=== PATIENT | female | born 1940 | race Hispanic/Latino ===

== ENCOUNTER → 2017-06-11 | Outpatient (CLI) | payer MEDICARE, OTHER ==
[~2017-06-11] MED LIST: ABAT50SY SQ; CALC-1038 PO; LEVO88TA7 PO; PANT20TA12 PO; VALS80TA29 PO
== END | disposition home or self-care (01) ==
LOC: RAH 10:24
PROVIDERS: ATTEND Family Medicine
DX: Z12.31 Encounter for screening mammogram for malignant neoplasm of breast (principal)
CPT/HCPCS: 77067

== ENCOUNTER → 2018-03-03 | Outpatient (CLI) | payer OTHER ==
[~2018-03-03] MED LIST changes: -VALS80TA29 PO; +VALS80TA30 PO
== END | disposition home or self-care (01) ==
LOC: RAH 07:15
PROVIDERS: ATTEND Family Medicine
DX: R10.32 Left lower quadrant pain (principal); R10.31 Right lower quadrant pain
CPT/HCPCS: 74176

== ENCOUNTER 2019-03-29 12:00 | Emergency (ER) | payer OTHER ==
[2019-03-29] MEDS ORDERED: KETOROLAC TROMETHAMINE 30MG/ML ONE (13:05)
== END 2019-03-29 13:37 | disposition home or self-care (01) ==
LOC: EDH 12:00
DX: S40.011A Contusion of right shoulder, initial encounter (principal); I10 Essential (primary) hypertension; E07.9 Disorder of thyroid, unspecified; Z88.8 Allergy status to other drugs, medicaments and biological substances; W22.8XXA Striking against or struck by other objects, initial encounter; Y93.89 Activity, other specified; Y92.098 Other place in other non-institutional residence as the place of occurrence of the external cause; Y99.8 Other external cause status
CPT/HCPCS: 73030; 73060; 96372; 99284; J1885

== ENCOUNTER → 2019-07-27 | Outpatient (CLI) | payer OTHER | END | disposition home or self-care (01) | LOC: OIH 13:11 | PROVIDERS: ATTEND Internal Medicine | DX: M16.0 Bilateral primary osteoarthritis of hip (principal); M19.011 Primary osteoarthritis, right shoulder; M19.012 Primary osteoarthritis, left shoulder; I70.90 Unspecified atherosclerosis; I87.8 Other specified disorders of veins; M47.816 Spondylosis without myelopathy or radiculopathy, lumbar region | CPT/HCPCS: 73030; 73521 ==

== ENCOUNTER → 2019-08-14 | Outpatient (CLI) | payer OTHER | END | disposition home or self-care (01) | LOC: OIH 14:29 | PROVIDERS: ATTEND Internal Medicine | DX: M47.816 Spondylosis without myelopathy or radiculopathy, lumbar region (principal); M48.061 Spinal stenosis, lumbar region without neurogenic claudication; M25.78 Osteophyte, vertebrae; M15.0 Primary generalized (osteo)arthritis | CPT/HCPCS: 72100 ==

== ENCOUNTER 2021-02-15 15:55 | Emergency (ER) | payer OTHER ==
[~2021-02-15] VITALS: Ht 157.5 cm; Wt 80.3 kg
[~2021-02-15 15:55] MED LIST changes: -PANT20TA12 PO; +PANT20TA18 PO
[2021-02-15 15:57] VITALS: BP 139/72
[2021-02-15] MEDS ORDERED: HYDROCODONE/ACETAMINOPHEN 5/325 MG TAB PO ONE (16:30)
[2021-02-15] MEDS ORDERED: LIDOP TD (17:39)
[2021-02-15] MEDS ORDERED: LIDOCAINE 5% TOPICAL PATCH TP ONE ×2 (17:44→18:00)
== END 2021-02-15 19:37 | disposition home or self-care (01) ==
LOC: EDH 15:55
DX: M48.56XA Collapsed vertebra, not elsewhere classified, lumbar region, initial encounter for fracture (principal); M54.16 Radiculopathy, lumbar region; I10 Essential (primary) hypertension; M19.90 Unspecified osteoarthritis, unspecified site; Z79.899 Other long term (current) drug therapy; Z88.8 Allergy status to other drugs, medicaments and biological substances
CPT/HCPCS: 72131

== ENCOUNTER 2021-04-21 09:10 | Observation (INO) | payer OTHER ==
[2021-04-18 13:41] LABS: BASOPHILS % (AUTO) 0.6 % (0.0-5.0); EOSINOPHILS % (AUTO) 3.7 % (0.0-8.0); HEMATOCRIT 40.8 % (36-48); LYMPHOCYTES % (AUTO) 18.4 % (21.0-51.0); MEAN CORPUSCULAR HEMOGLOBIN 30.5 pg (27.0-33.0); MEAN CORPUSCULAR HGB CONC 33.1 g/dL (32.0-36.0); MEAN CORPUSCULAR VOLUME 92.3 fL (79-99); MONOCYTES % (AUTO) 7.9 % (3.0-13.0); NEUTROPHILS % (AUTO) 68.8 % (40.0-77.0); PLATELET COUNT (AUTO) 260 K/uL (130-400); RED BLOOD CELL COUNT(AUTO) 4.42 MIL/uL (4.00-5.50); RED CELL DISTRIBUTION WIDTH 12.9 % (11.0-15.5); WHITE BLOOD COUNT (AUTO) 8.7 K/uL (4.8-10.8)
[2021-04-18 13:43] LABS: APPEARANCE,URINE Cloudy (CLEAR); BILIRUBIN,URINE Negative (NEGATIVE); COLOR,URINE Dark Yellow (YELLOW); GLUCOSE, URINE (UA) Negative (NEGATIVE); KETONES,URINE Negative (NEGATIVE); LEUKOCYTE ESTERASE ,URINE Large (NEGATIVE); NITRATE,URINE Positive (NEGATIVE); OCCULT BLOOD,URINE Negative (NEGATIVE); PH,URINE 6.5 (5.0-8.0); PROTEIN,URINE Negative (NEGATIVE)
[2021-04-18 13:49] VITALS: BP 178/73
[2021-04-18 13:53] LABS: CREATININE 0.7 mg/dL (0.5-1.5); POTASSIUM 3.8 mmol/L (3.5-5.1)
[2021-04-18 13:56] LABS: INR 1.03 (0.85-1.15); PROTHROMBIN TIME 11.2 SEC (9.6-11.6)
[2021-04-18 14:22] LABS: BACTERIA,URINE Moderate /HPF (None Seen); MUCUS,URINE Few LPF (None Seen); SQUAMOUS EPITHELIAL CELL,UR Few /HPF (0-2); WBC,URINE 26-50 /HPF (0-1)
[~2021-04-21] VITALS: Ht 154.9 cm; Wt 78.4 kg
[2021-04-21] VITALS (23 sets, daily range): BP systolic 104–171; BP diastolic 42–82
[~2021-04-21 09:10] MED LIST changes: -ABAT50SY SQ; -CALC-1038 PO; +DULO30CA52 PO; +FURO20TA4 PO; +LOSA50TA64 PO; -PANT20TA18 PO; -VALS80TA30 PO
[2021-04-21] MEDS ORDERED: GENTAMICIN SULFATE 240 MG in 0.9%NACL 100ML 100 ML IV SCH (10:00)
[2021-04-21] MEDS ORDERED: CEFAZOLIN SODIUM 1 GM VIAL ONE ×3 (10:10→15:01)
[2021-04-21] MEDS ORDERED: LACTATED RINGERS 1000ML 1,000 ML IV ONE (10:10)
[2021-04-21] MEDS: CEFAZOLIN SODIUM 1 GM VIAL IVP ONE ×2 (10:30→14:50)
[2021-04-21] MEDS ORDERED: FENTANYL CITRATE PF 50 MCG/1 ML 2ML VIAL ONE (13:06)
[2021-04-21] MEDS ORDERED: SUCCINYLCHOLINE CHLORIDE 20 MG/ML 10 ML VIAL ONE (13:06)
[2021-04-21] MEDS ORDERED: ROCURONIUM 10MG/1ML SYR 10 MG/ML ML ONE (13:06)
[2021-04-21] MEDS ORDERED: LIDOCAINE PF 100MG/5ML (2%) SYRINGE 5ML ONE (13:06)
[2021-04-21] MEDS ORDERED: PROPOFOL 10 MG/ML 20ML VIAL IV ONE ×2 (13:06→17:36)
[2021-04-21] MEDS ORDERED: ROPIVACAINE 0.5% 5MG/ML 30ML IJ ONE (13:08)
[2021-04-21] MEDS ORDERED: TRANEXAMIC ACID 1000MG/10ML ONE ×2 (13:34→18:09)
[2021-04-21] MEDS ORDERED: ARTIFICIAL TEARS 3.5 GM OINTMENT ONE (14:44)
[2021-04-21] MEDS ORDERED: GLYCOPYRROLATE 1 MG/5 ML SYRINGE ONE (15:44)
[2021-04-21] MEDS ORDERED: PHENYLEPHRINE HCL 10 MG/ML 1ML VIAL IV ONE (16:04)
[2021-04-21] MEDS ORDERED: EPHEDRINE SULFATE 50 MG/ML AMPULE ONE (17:12)
[2021-04-21] MEDS ORDERED: NEOSTIGMINE 5MG/5ML SYR IV ONE (17:19)
[2021-04-21] MEDS ORDERED: DEXAMETHASONE SOD PHOSPHATE 10MG/ML 1ML VIAL ONE (17:52)
[2021-04-21] MEDS ORDERED: ONDANSETRON 4MG INJ ONE (17:53)
[2021-04-21] MEDS ORDERED: KCL 20 MEQ ERTAB PO PRN (18:00)
[2021-04-21] MEDS: ACETAMINOPHEN 500 MG TABLET PO SCH (18:00)
[2021-04-21] MEDS ORDERED: DiphenhydrAMINE HCL 50 MG/ML VIAL IVP PRN (18:00)
[2021-04-21] MEDS ORDERED: CALCIUM CARB 500MG PO PRN (18:00)
[2021-04-21] MEDS ORDERED: KETOROLAC 15MG/ML VIAL (15MG/ML) IV PRN (18:00)
[2021-04-21] MEDS ORDERED: TEMAZEPAM 15 MG CAPSULE PO PRN (18:00)
[2021-04-21] MEDS ORDERED: OXYCODONE HCL 5 MG TAB PO PRN ×2 (18:00)
[2021-04-21] MEDS ORDERED: LIDOCAINE HCL-MPF 1% 2ML VIAL IV PRN (18:00)
[2021-04-21] MEDS ORDERED: POTASSIUM CHLORIDE 10% ELIXIR 20 MEQ/15 ML UDCUP PO PRN (18:00)
[2021-04-21] MEDS ORDERED: TRAMADOL HCL 50 MG TABLET PO PRN (18:00)
[2021-04-21] MEDS ORDERED: FE FUMARATE/FA/MV, MIN COMB#15 1 TAB PO PRN (18:00)
[2021-04-21] MEDS ORDERED: POTASSIUM CHLORIDE 20MEQ/100ML 100 ML IV PRN (18:00)
[2021-04-21] MEDS ORDERED: ONDANSETRON 4MG INJ IVP PRN (18:00)
[2021-04-21] MEDS: FAMOTIDINE 20MG TAB PO SCH (22:07)
[2021-04-21] MEDS: CELECOXIB 200 MG CAP PO SCH (22:07)
[2021-04-21] MEDS: 0.9%NACL 1000ML 1,000 ML IV SCH (22:09)
[2021-04-21] MEDS: CEFAZOLIN SODIUM 1 GM VIAL IVP SCH (23:12)
[2021-04-22] MEDS: ACETAMINOPHEN 500 MG TABLET PO SCH ×3 (03:11→18:04)
[2021-04-22 03:58] VITALS: BP 129/64
[2021-04-22 04:04] LABS: HEMATOCRIT 30.6 % (36-48); MEAN CORPUSCULAR HEMOGLOBIN 30.1 pg (27.0-33.0); MEAN CORPUSCULAR HGB CONC 33.7 g/dL (32.0-36.0); MEAN CORPUSCULAR VOLUME 89.5 fL (79-99); RED BLOOD CELL COUNT(AUTO) 3.42 MIL/uL (4.00-5.50); RED CELL DISTRIBUTION WIDTH 12.7 % (11.0-15.5); WHITE BLOOD COUNT (AUTO) 8.9 K/uL (4.8-10.8)
[2021-04-22 04:12] LABS: CREATININE 0.6 mg/dL (0.5-1.5); POTASSIUM 3.5 mmol/L (3.5-5.1)
[2021-04-22] MEDS: CEFAZOLIN SODIUM 1 GM VIAL IVP SCH (06:02)
[2021-04-22] MEDS ORDERED: LEVOTHYROXINE 88 MCG TABLET PO SCH (06:30)
[2021-04-22 07:30] VITALS: BP 152/67
[2021-04-22] MEDS ORDERED: LEVOFLOXACIN 500 MG TABLET PO SCH (09:00)
[2021-04-22] MEDS ORDERED: DULOXETINE HCL 30 MG CAP PO SCH (09:00)
[2021-04-22] MEDS ORDERED: POLYETHYLENE GLYCOL 3350 17 GM POWD.PACK PO SCH (09:00)
[2021-04-22] MEDS ORDERED: LOSARTAN 50 MG TABLET PO SCH (09:00)
[2021-04-22] MEDS ORDERED: ENOXAPARIN SODIUM 30 MG/0.3 ML SQ SCH (09:00)
[2021-04-22] MEDS: CELECOXIB 200 MG CAP PO SCH (09:42)
[2021-04-22] MEDS: FAMOTIDINE 20MG TAB PO SCH (09:43)
[2021-04-22] MEDS: 0.9%NACL 1000ML 1,000 ML IV SCH (09:46)
[2021-04-22 11:00] VITALS: BP 130/72
[2021-04-22] MEDS ORDERED: FUROSEMIDE 20 MG TABLET PO SCH (12:00)
[2021-04-22 15:30] VITALS: BP 142/61
[2021-04-22] MEDS ORDERED: LEVO500T90 PO (18:00)
[2021-04-22] MEDS ORDERED: HYDR-4060 PO (18:00)
[2021-04-24] MEDS ORDERED: BISACODYL 10 MG SUPP.RECT RC PRN (18:00)
== END 2021-04-22 19:55 | disposition home or self-care (01) ==
LOC: DAH 09:10 → 4AH 09:11
PROVIDERS: ADMIT Orthopaedic Surgery; ATTEND Orthopaedic Surgery
DX: M12.812 Other specific arthropathies, not elsewhere classified, left shoulder (principal); Z20.822 Contact with and (suspected) exposure to COVID-19; I10 Essential (primary) hypertension; D64.9 Anemia, unspecified; Z79.899 Other long term (current) drug therapy; Z98.890 Other specified postprocedural states
CPT/HCPCS: 23472; 36415 ×2; 73030; 80048 ×2; 81001; 85025; 85027; 85610; 87077; 87088; 87186; 87635; 87641; 93005; 96365; 96372; 96375; 96376; 97039 ×2; 97116; 97161; 97530 ×2; A4215; A4221; A4222; A4223 ×2; A4344; A4565; A4600; A4649 ×3; A4663; A4930 ×3; A5113; A5120; A6207; C1776; C9803; G0168; G0378 ×25; J0330; J0690 ×5; J1100; J1580; J1650; J2001; J2370; J2405; J2704 ×2; J2710; J2795; J3010; J3490 ×4; J7120 ×2

== ENCOUNTER 2022-03-02 06:20 | Observation (INO) | payer OTHER ==
[2022-02-27 09:54] LABS: HEMATOCRIT 36.5 % (36-48); LYMPHOCYTES % (AUTO) 22.3 % (21.0-51.0); MEAN CORPUSCULAR HGB CONC 34.2 g/dL (32.0-36.0); MEAN CORPUSCULAR VOLUME 87.5 fL (79-99); MONOCYTES % (AUTO) 8.1 % (3.0-13.0); NEUTROPHILS % (AUTO) 58.2 % (40.0-77.0); PLATELET COUNT (AUTO) 272 K/uL (130-400); RED BLOOD CELL COUNT(AUTO) 4.17 MIL/uL (4.00-5.50); RED CELL DISTRIBUTION WIDTH 12.5 % (11.0-15.5)
[2022-02-27 10:13] LABS: INR 0.99 (0.85-1.15); PROTHROMBIN TIME 10.8 SEC (9.6-11.6)
[2022-02-27 10:14] LABS: PARTIAL THROMBOPLASTIN TIME 29.7 SEC (26.3-35.5)
[2022-02-27 10:17] LABS: ALBUMIN 3.6 g/dL (3.5-5.0); CARBON DIOXIDE 28 mmol/L (21-32); CHLORIDE 95 mmol/L (101-111); CREATININE 0.6 mg/dL (0.5-1.5); GLOMERULAR FILTR. RATE CALC 102 mL/min (>60); GLUCOSE,RANDOM 100 mg/dL (70-105); SODIUM SERUM 129 mmol/L (136-145); UREA NITROGEN, BLOOD 10 mg/dL (7-18)
[2022-02-27 10:21] LABS: CRP QUANTITATIVE < 2.00 mg/L (0.00-9.0)
[2022-02-27 11:30] VITALS: BP 174/78
[2022-03-02] VITALS (24 sets, daily range): BP systolic 106–159; BP diastolic 50–97
[~2022-03-02] VITALS: Ht 157.5 cm; Wt 72.2 kg
[~2022-03-02 06:20] MED LIST changes: -FURO20TA4 PO; +NAPR-1023 PO; +PRAMIPEXOLE PO
[2022-03-02] MEDS ORDERED: LACTATED RINGERS 1000ML 1,000 ML IV ONE (06:50)
[2022-03-02 07:01] LABS: APPEARANCE,URINE SL CLOUDY (CLEAR); BILIRUBIN,URINE NEGATIVE (NEGATIVE); COLOR,URINE YELLOW (YELLOW); GLUCOSE, URINE (UA) NEGATIVE (NEGATIVE); KETONES,URINE NEGATIVE (NEGATIVE); LEUKOCYTE ESTERASE ,URINE SMALL Leu/uL (NEGATIVE); NITRATE,URINE POSITIVE (NEGATIVE); OCCULT BLOOD,URINE NEGATIVE (NEGATIVE); PROTEIN,URINE NEGATIVE (NEGATIVE); UROBILINOGEN,URINE 0.2 mg/dL (0.2-1.0)
[2022-03-02] MEDS: CEFAZOLIN SODIUM 1 GM VIAL ONE ×2 (07:10→09:25)
[2022-03-02 07:24] LABS: BACTERIA,URINE Many /HPF (None Seen); RBC,URINE 0-1 /HPF (0-1); SQUAMOUS EPITHELIAL CELL,UR Rare /HPF (0-2)
[2022-03-02] MEDS ORDERED: ROCURONIUM 10MG/1ML SYR 10 MG/ML ML ONE (08:58)
[2022-03-02] MEDS ORDERED: NEOSTIGMINE 5MG/5ML SYR IV ONE (08:58)
[2022-03-02] MEDS ORDERED: GLYCOPYRROLATE 1 MG/5 ML SYRINGE ONE (08:58)
[2022-03-02] MEDS ORDERED: ROPIVACAINE 0.5% 5MG/ML 30ML IJ ONE ×2 (08:58→09:00)
[2022-03-02] MEDS ORDERED: ONDANSETRON 4MG INJ ONE (08:58)
[2022-03-02] MEDS ORDERED: FENTANYL CITRATE PF 50 MCG/1 ML 2ML VIAL ONE (08:59)
[2022-03-02] MEDS ORDERED: PROPOFOL 10 MG/ML 20ML VIAL IV ONE (09:00)
[2022-03-02] MEDS ORDERED: PHENYLEPHRINE HCL 10 MG/ML 1ML VIAL IV ONE (10:13)
[2022-03-02] MEDS ORDERED: TRANEXAMIC ACID 1000MG/10ML ONE (10:50)
[2022-03-02] MEDS ORDERED: POTASSIUM CHLORIDE 20MEQ/100ML 100 ML IV PRN (11:30)
[2022-03-02] MEDS ORDERED: ONDANSETRON 4MG INJ IVP PRN (11:30)
[2022-03-02] MEDS ORDERED: FE FUMARATE/FA/MV, MIN COMB#15 1 TAB PO PRN (11:30)
[2022-03-02] MEDS: KETOROLAC 15MG/ML VIAL (15MG/ML) IV SCH ×3 (11:30→23:33)
[2022-03-02] MEDS ORDERED: CALCIUM CARB 500MG PO PRN (11:30)
[2022-03-02] MEDS ORDERED: POTASSIUM CHLORIDE 10% ELIXIR 20 MEQ/15 ML UDCUP PO PRN (11:30)
[2022-03-02] MEDS ORDERED: LIDOCAINE HCL-MPF 1% 2ML VIAL IV PRN (11:30)
[2022-03-02] MEDS ORDERED: TRAMADOL HCL 50 MG TABLET PO PRN (11:30)
[2022-03-02] MEDS ORDERED: NAPROXEN 500 MG TABLET PO PRN (13:30)
[2022-03-02] MEDS: CEFAZOLIN SODIUM 1 GM VIAL IVP SCH ×2 (16:50→23:33)
[2022-03-02] MEDS: 0.9%NACL 1000ML 1,000 ML IV SCH ×2 (18:10→21:59)
[2022-03-02] MEDS: PRAMIPEXOLE DI-HCL 0.25 MG TABLET PO SCH (19:54)
[2022-03-02] MEDS: DULOXETINE HCL 30 MG CAP PO SCH (19:55)
[2022-03-02] MEDS: ACETAMINOPHEN WITH CODEINE 1 TAB TAB PO PRN (21:11)
[2022-03-03] VITALS (7 sets, daily range): BP systolic 93–131; BP diastolic 41–70
[2022-03-03] MEDS ORDERED: LEVOTHYROXINE 88 MCG TABLET ONE (04:23)
[2022-03-03 04:55] LABS: HEMATOCRIT 31.4 % (36-48); MEAN CORPUSCULAR HEMOGLOBIN 29.7 pg (27.0-33.0); MEAN CORPUSCULAR HGB CONC 33.8 g/dL (32.0-36.0); RED BLOOD CELL COUNT(AUTO) 3.57 MIL/uL (4.00-5.50); RED CELL DISTRIBUTION WIDTH 12.6 % (11.0-15.5); WHITE BLOOD COUNT (AUTO) 10.1 K/uL (4.8-10.8)
[2022-03-03 05:08] LABS: CREATININE 0.7 mg/dL (0.5-1.5); POTASSIUM 3.7 mmol/L (3.5-5.1)
[2022-03-03] MEDS: LEVOTHYROXINE 88 MCG TABLET PO SCH (06:06)
[2022-03-03] MEDS: KCL 20 MEQ ERTAB PO PRN ×2 (06:07→21:03)
[2022-03-03] MEDS: KETOROLAC 15MG/ML VIAL (15MG/ML) IV SCH ×4 (06:07→21:03)
[2022-03-03] MEDS: ACETAMINOPHEN WITH CODEINE 1 TAB TAB PO PRN ×2 (06:16→21:03)
[2022-03-03] MEDS: POLYETHYLENE GLYCOL 3350 17 GM POWD.PACK PO SCH (08:27)
[2022-03-03] MEDS: DULOXETINE HCL 30 MG CAP PO SCH ×2 (08:27→21:04)
[2022-03-03] MEDS: PRAMIPEXOLE DI-HCL 0.25 MG TABLET PO SCH ×2 (08:27→21:04)
[2022-03-03] MEDS ORDERED: LOSARTAN 50 MG TABLET PO SCH (09:00)
[2022-03-04] VITALS: BP 110/48
[2022-03-04 04:00] VITALS: BP 101/51
[2022-03-04] MEDS: KETOROLAC 15MG/ML VIAL (15MG/ML) IV SCH (05:33)
[2022-03-04] MEDS: LEVOTHYROXINE 88 MCG TABLET PO SCH (05:33)
[2022-03-04] MEDS: DULOXETINE HCL 30 MG CAP PO SCH (08:46)
[2022-03-04] MEDS: POLYETHYLENE GLYCOL 3350 17 GM POWD.PACK PO SCH (08:46)
[2022-03-04] MEDS: PRAMIPEXOLE DI-HCL 0.25 MG TABLET PO SCH (08:46)
[2022-03-04 09:03] VITALS: BP 99/53
[2022-03-04] MEDS ORDERED: MACR100 PO (10:49)
[2022-03-04] MEDS ORDERED: ACET-2079 PO (10:49)
[2022-03-05] MEDS ORDERED: BISACODYL 10 MG SUPP.RECT RC PRN (11:30)
== END 2022-03-04 12:30 | disposition home health service (06) ==
LOC: DAH 06:20 → DAHIP 06:21 → 4DH 12:30
PROVIDERS: ADMIT Student in an Organized Health Care Education/Training Program; ATTEND Student in an Organized Health Care Education/Training Program
DX: M75.101 Unspecified rotator cuff tear or rupture of right shoulder, not specified as traumatic (principal); Z20.822 Contact with and (suspected) exposure to COVID-19; M12.811 Other specific arthropathies, not elsewhere classified, right shoulder; M25.511 Pain in right shoulder; G89.29 Other chronic pain; D64.9 Anemia, unspecified; Z79.899 Other long term (current) drug therapy; Z98.890 Other specified postprocedural states
CPT/HCPCS: 82040; 80048 ×2; 85025; 85610; 85730; 84134; 86140; 87426; 87641; 23472; 96374; 96376 ×3; 96375; 64415; 87077; 87088; 87186; 82948; 81001; 36415 ×2; 73030; 97161; 85027; 97039; 97116 ×2; 97530 ×3; G0378 ×48; A4663; J7030 ×2; A4565; C1776; J7120; J3010; J0690 ×3; J3490 ×2; J2710; J2704; J2405; J2795 ×2; J1885 ×6; J2370; A6446; G0168; A6254; A5120; A4215; A4223; A4222; A4221; A4335; A4600

== ENCOUNTER 2022-07-24 05:53 | Day surgery (SDC) | payer OTHER ==
[2022-07-22 10:47] LABS: ALBUMIN 3.7 g/dL (3.5-5.0); CARBON DIOXIDE 32 mmol/L (21-32); CHLORIDE 95 mmol/L (101-111); CREATININE 0.7 mg/dL (0.5-1.5); GLOMERULAR FILTR. RATE CALC 85 mL/min (>60); GLUCOSE,RANDOM 109 mg/dL (70-105); POTASSIUM 4.3 mmol/L (3.5-5.1); SODIUM SERUM 131 mmol/L (136-145); UREA NITROGEN, BLOOD 8 mg/dL (7-18)
[2022-07-22 10:48] LABS: CRP QUANTITATIVE < 2.00 mg/L (0.00-9.0)
[2022-07-23 09:43] VITALS: BP 183/73
[~2022-07-24] VITALS: Ht 157.5 cm; Wt 73.7 kg
[2022-07-24] VITALS (18 sets, daily range): BP systolic 131–156; BP diastolic 56–92
[~2022-07-24 05:53] MED LIST changes: +BUPIVACAINE/PF 0.5% 30ML VIAL ONE; +LEVO88CA4 PO; -LEVO88TA7 PO; -NAPR-1023 PO; +PRAM0.5T12 PO; -PRAMIPEXOLE PO
[2022-07-24] MEDS ORDERED: LACTATED RINGERS 1000ML 1,000 ML IV ONE (06:14)
[2022-07-24] MEDS ORDERED: CEFAZOLIN SODIUM 2 GM VIAL ONE (06:14)
[2022-07-24] MEDS ORDERED: PROPOFOL 10 MG/ML 20ML VIAL IV ONE (07:14)
[2022-07-24] MEDS ORDERED: ROCURONIUM 10MG/1ML SYR 10 MG/ML ML ONE (07:14)
[2022-07-24] MEDS ORDERED: LIDOCAINE PF 100MG/5ML (2%) SYRINGE 5ML ONE (07:14)
[2022-07-24] MEDS ORDERED: FENTANYL CITRATE PF 50 MCG/1 ML 2ML VIAL ONE (07:15)
[2022-07-24] MEDS ORDERED: DEXAMETHASONE SOD PHOSPHATE 4 MG/ML 1ML VIAL ONE (07:38)
[2022-07-24] MEDS ORDERED: ONDANSETRON 4MG INJ ONE (07:38)
[2022-07-24] MEDS ORDERED: NEOSTIGMINE 5MG/5ML SYR IV ONE (07:49)
[2022-07-24] MEDS ORDERED: GLYCOPYRROLATE 1 MG/5 ML SYRINGE ONE (07:49)
[2022-07-24] MEDS ORDERED: CEFAZOLIN SODIUM 2 GM VIAL IVPB PRN (08:00)
[2022-07-24] MEDS ORDERED: ACET-2079 PO (08:27)
== END 2022-07-24 09:40 | disposition home or self-care (01) ==
LOC: DAH 05:53
PROVIDERS: ATTEND Student in an Organized Health Care Education/Training Program
DX: G56.03 Carpal tunnel syndrome, bilateral upper limbs (principal); Z20.822 Contact with and (suspected) exposure to COVID-19; I10 Essential (primary) hypertension; M06.9 Rheumatoid arthritis, unspecified; F41.9 Anxiety disorder, unspecified; E03.9 Hypothyroidism, unspecified; K21.9 Gastro-esophageal reflux disease without esophagitis; J45.909 Unspecified asthma, uncomplicated; E78.00 Pure hypercholesterolemia, unspecified; I73.9 Peripheral vascular disease, unspecified; Z98.41 Cataract extraction status, right eye; Z90.710 Acquired absence of both cervix and uterus; Z98.890 Other specified postprocedural states; Z98.49 Cataract extraction status, unspecified eye; Z79.899 Other long term (current) drug therapy
CPT/HCPCS: 82040; 80048; 84134; 86140; 87426; 36415; 64721; J1100; A4663; J7120; J3010; J3490 ×2; J2710; J2001; J2704; J2405; J0690; A6223; A4649; A4215 ×2; A4223; A4222; A4221; A4335 ×4

== ENCOUNTER → 2023-01-01 | Outpatient (CLI) | payer OTHER ==
[~2023-01-01] VITALS: Ht 157.5 cm; Wt 76.7 kg
[~2023-01-01] MED LIST changes: +ACET-2079 PO; -BUPIVACAINE/PF 0.5% 30ML VIAL ONE
[2023-01-01 12:52] VITALS: BP 146/72; PULSE 61; RESP 16
[2023-01-01 12:53] LABS: BASOPHILS % (AUTO) 1.7 % (0.0-5.0); EOSINOPHILS % (AUTO) 5.3 % (0.0-8.0); HEMATOCRIT 38.1 % (36-48); MEAN CORPUSCULAR HEMOGLOBIN 29.2 pg (27.0-33.0); MEAN CORPUSCULAR HGB CONC 33.3 g/dL (32.0-36.0); MEAN CORPUSCULAR VOLUME 87.6 fL (79-99); MONOCYTES % (AUTO) 9.5 % (3.0-13.0); NEUTROPHILS % (AUTO) 61.2 % (40.0-77.0); PLATELET COUNT (AUTO) 259 K/uL (130-400); RED BLOOD CELL COUNT(AUTO) 4.35 MIL/uL (4.00-5.50); RED CELL DISTRIBUTION WIDTH 12.9 % (11.0-15.5); WHITE BLOOD COUNT (AUTO) 5.9 K/uL (4.8-10.8)
[2023-01-01 12:54] LABS: APPEARANCE,URINE CLOUDY (CLEAR); BILIRUBIN,URINE NEGATIVE (NEGATIVE); COLOR,URINE YELLOW (YELLOW); GLUCOSE, URINE (UA) NEGATIVE (NEGATIVE); KETONES,URINE NEGATIVE (NEGATIVE); LEUKOCYTE ESTERASE ,URINE 500 Leu/uL (NEGATIVE); NITRATE,URINE NEGATIVE (NEGATIVE); OCCULT BLOOD,URINE NEGATIVE (NEGATIVE); PROTEIN,URINE NEGATIVE (NEGATIVE); UROBILINOGEN,URINE 0.2 mg/dL (0.2-1.0)
[2023-01-01 12:57] LABS: BACTERIA,URINE FEW /HPF (None Seen); SQUAMOUS EPITHELIAL CELL,UR RARE /HPF (0-2); WBC,URINE 51-100 /HPF (0-1)
[2023-01-01 13:03] LABS: CREATININE 0.6 mg/dL (0.5-1.5)
== END | disposition home or self-care (01) ==
LOC: DAH 10:00 → EDSTATUS 11:30
PROVIDERS: ATTEND Urology
DX: Z01.818 Encounter for other preprocedural examination (principal); Z20.822 Contact with and (suspected) exposure to COVID-19; N39.41 Urge incontinence
CPT/HCPCS: 93005; 87426; 80048; 85025; 87077; 87088; 87186; 81001; 36415; A6260

== ENCOUNTER 2023-01-14 06:37 | Day surgery (SDC) | payer OTHER ==
[2023-01-12 10:47] LABS: BASOPHILS # (AUTO) 0.06 K/uL (0.00-0.20); EOSINOPHILS # (AUTO) 0.36 K/uL (0.00-0.70); EOSINOPHILS % (AUTO) 6.1 % (0.0-8.0); HEMATOCRIT 36.6 % (36-48); IMMATURE GRANULOCYTE ABSOLUTE 0.02 K/uL (0-1); LYMPHOCYTES # (AUTO) 1.3 K/uL (1.0-4.8); LYMPHOCYTES % (AUTO) 22.8 % (21.0-51.0); MEAN CORPUSCULAR HEMOGLOBIN 28.9 pg (27.0-33.0); MEAN CORPUSCULAR HGB CONC 33.6 g/dL (32.0-36.0); MEAN CORPUSCULAR VOLUME 86.1 fL (79-99); MONOCYTES # (AUTO) 0.6 K/uL (0.1-1.0); MONOCYTES % (AUTO) 10.7 % (3.0-13.0); NEUTROPHILS # (AUTO) 3.5 K/uL (1.8-7.7); NEUTROPHILS % (AUTO) 59.1 % (40.0-77.0); PLATELET COUNT (AUTO) 252 K/uL (130-400); RED BLOOD CELL COUNT(AUTO) 4.25 MIL/uL (4.00-5.50); RED CELL DISTRIBUTION WIDTH 12.9 % (11.0-15.5); WHITE BLOOD COUNT (AUTO) 5.9 K/uL (4.8-10.8)
[2023-01-12 10:49] LABS: ADD UA MICROSCOPIC YES; APPEARANCE,URINE HAZY (CLEAR); BILIRUBIN,URINE NEGATIVE (NEGATIVE); COLOR,URINE YELLOW (YELLOW); GLUCOSE, URINE (UA) NEGATIVE (NEGATIVE); KETONES,URINE NEGATIVE (NEGATIVE); LEUKOCYTE ESTERASE ,URINE 500 Leu/uL (NEGATIVE); NITRATE,URINE NEGATIVE (NEGATIVE); OCCULT BLOOD,URINE NEGATIVE (NEGATIVE); PROTEIN,URINE NEGATIVE (NEGATIVE); UROBILINOGEN,URINE 0.2 mg/dL (0.2-1.0)
[2023-01-12 10:51] VITALS: BP 158/80; PULSE 68; RESP 16
[2023-01-12 10:52] LABS: BACTERIA,URINE MOD /HPF (None Seen); MUCUS,URINE RARE LPF (None Seen); RBC,URINE 0-1 /HPF (0-1); SQUAMOUS EPITHELIAL CELL,UR RARE /HPF (0-2); WBC,URINE 51-100 /HPF (0-1)
[2023-01-12 10:55] LABS: CREATININE 0.6 mg/dL (0.5-1.5); POTASSIUM 4.2 mmol/L (3.5-5.1)
[2023-01-14] VITALS (17 sets, daily range): BP systolic 125–161; BP diastolic 60–81; PULSE 57–89; RESP 12–17
[~2023-01-14] VITALS: Ht 157.5 cm; Wt 78.4 kg
[~2023-01-14 06:37] MED LIST changes: -ACET-2079 PO
[2023-01-14] MEDS ORDERED: LACTATED RINGERS 1000ML 1,000 ML IV ONE (07:09)
[2023-01-14] MEDS ORDERED: CEFTRIAXONE 1G VIAL ONE (07:09)
[2023-01-14] MEDS ORDERED: DEXAMETHASONE SOD PHOSPHATE 10MG/ML 1ML VIAL ONE (08:33)
[2023-01-14] MEDS ORDERED: LIDOCAINE PF 100MG/5ML (2%) SYRINGE 5ML ONE (08:33)
[2023-01-14] MEDS ORDERED: ONDANSETRON 4MG INJ ONE (08:33)
[2023-01-14] MEDS ORDERED: FENTANYL CITRATE PF 50 MCG/1 ML 2ML VIAL ONE (08:34)
[2023-01-14] MEDS ORDERED: PROPOFOL 10 MG/ML 20ML VIAL IV ONE (08:34)
[2023-01-14] MEDS ORDERED: CEFTRIAXONE 1G VIAL IVPB ONE (08:40)
[2023-01-14] MEDS ORDERED: BOTULINUM TOXIN TYPE A 100 UNITS/VIAL INJ ONE (09:00)
== END 2023-01-14 10:45 | disposition home or self-care (01) ==
LOC: DAH 06:37
PROVIDERS: ATTEND Urology
DX: N39.46 Mixed incontinence (principal); Z20.822 Contact with and (suspected) exposure to COVID-19; N32.3 Diverticulum of bladder; N32.81 Overactive bladder; R35.1 Nocturia; I10 Essential (primary) hypertension; K21.9 Gastro-esophageal reflux disease without esophagitis; E66.01 Morbid (severe) obesity due to excess calories; J45.909 Unspecified asthma, uncomplicated; M19.90 Unspecified osteoarthritis, unspecified site; Z79.01 Long term (current) use of anticoagulants; Z79.899 Other long term (current) drug therapy; Z98.890 Other specified postprocedural states
CPT/HCPCS: 80048; 85025; 87088; 87426; 81001; 36415; 71045; 93005; 52287; 87077; 87186; A6260; A4663; J7120 ×2; J3010; J1100; J2001; J0696 ×2; J2704; J2405; J0585; A4358; A4215 ×3; A4223; A4222; A4221; A4600; J3490

== ENCOUNTER 2023-07-29 06:51 | Day surgery (SDC) | payer OTHER ==
[2023-07-23 11:32] LABS: BASOPHILS # (AUTO) 0.07 K/uL (0.00-0.20); EOSINOPHILS # (AUTO) 0.32 K/uL (0.00-0.70); EOSINOPHILS % (AUTO) 4.6 % (0.0-8.0); HEMATOCRIT 38.1 % (36-48); IMMATURE GRANULOCYTE ABSOLUTE 0.03 K/uL (0-1); LYMPHOCYTES # (AUTO) 1.4 K/uL (1.0-4.8); LYMPHOCYTES % (AUTO) 20.8 % (21.0-51.0); MEAN CORPUSCULAR HGB CONC 33.6 g/dL (32.0-36.0); MEAN CORPUSCULAR VOLUME 86.4 fL (79-99); MONOCYTES # (AUTO) 0.6 K/uL (0.1-1.0); MONOCYTES % (AUTO) 8.4 % (3.0-13.0); NEUTROPHILS # (AUTO) 4.5 K/uL (1.8-7.7); NEUTROPHILS % (AUTO) 64.8 % (40.0-77.0); PLATELET COUNT (AUTO) 263 K/uL (130-400); RED BLOOD CELL COUNT(AUTO) 4.41 MIL/uL (4.00-5.50); WHITE BLOOD COUNT (AUTO) 6.9 K/uL (4.8-10.8)
[2023-07-23 11:34] VITALS: BP 170/64; PULSE 73; RESP 18
[2023-07-23 11:39] LABS: CREATININE 0.6 mg/dL (0.5-1.5); POTASSIUM 4.3 mmol/L (3.5-5.1)
[2023-07-23 11:53] LABS: APPEARANCE,URINE CLEAR (CLEAR); BILIRUBIN,URINE NEGATIVE (NEGATIVE); COLOR,URINE YELLOW (YELLOW); GLUCOSE, URINE (UA) NEGATIVE (NEGATIVE); KETONES,URINE NEGATIVE (NEGATIVE); LEUKOCYTE ESTERASE ,URINE NEGATIVE Leu/uL (NEGATIVE); NITRATE,URINE NEGATIVE (NEGATIVE); OCCULT BLOOD,URINE NEGATIVE (NEGATIVE); PROTEIN,URINE NEGATIVE (NEGATIVE); UROBILINOGEN,URINE 0.2 mg/dL (0.2-1.0)
[2023-07-23 11:55] LABS: ADD UA MICROSCOPIC NO
[2023-07-29] VITALS (17 sets, daily range): BP systolic 118–160; BP diastolic 54–98; PULSE 62–77; RESP 11–18
[~2023-07-29] VITALS: Ht 149.9 cm; Wt 79.3 kg
[~2023-07-29 06:51] MED LIST changes: +ERGO500093 PO
[2023-07-29] MEDS ORDERED: CEFTRIAXONE 1G VIAL ONE (07:06)
[2023-07-29] MEDS ORDERED: GLYCOPYRROLATE 0.2 MG/ML 5 ML VIAL ONE (07:15)
[2023-07-29] MEDS ORDERED: LIDOCAINE PF 100MG/5ML (2%) SYRINGE 5ML ONE (07:15)
[2023-07-29] MEDS ORDERED: PROPOFOL 10 MG/ML 20ML VIAL IV ONE (07:15)
[2023-07-29] MEDS ORDERED: DEXAMETHASONE SOD PHOSPHATE 10MG/ML 1ML VIAL ONE (07:15)
[2023-07-29] MEDS ORDERED: MIDAZOLAM HCL 1 MG/ML 2ML VIAL ONE (07:15)
[2023-07-29] MEDS ORDERED: ONDANSETRON 4MG INJ ONE (07:15)
[2023-07-29] MEDS ORDERED: ROCURONIUM BROMIDE 10MG/1ML 5ML VL ONE (07:15)
[2023-07-29] MEDS ORDERED: NEOSTIGMINE METHYLSULFATE 1MG/ML IV ONE (07:15)
[2023-07-29] MEDS ORDERED: SUCCINYLCHOLINE CHLORIDE 20 MG/ML 10 ML VIAL ONE (07:15)
[2023-07-29] MEDS ORDERED: FENTANYL CITRATE PF 50 MCG/1 ML 2ML VIAL ONE (07:16)
[2023-07-29] MEDS ORDERED: BOTULINUM TOXIN TYPE A 100 UNITS/VIAL INJ ONE (07:30)
[2023-07-29] MEDS: CEFTRIAXONE 1G VIAL IVPB ONE (08:45)
[2023-07-29] MEDS: BOTULINUM TOXIN TYPE A 100 UNITS/VIAL INJ ONE (09:00)
[2023-07-29] MEDS ORDERED: NITR100C4 PO (10:40)
[2023-07-29] MEDS: LACTATED RINGERS 1000ML 1,000 ML IV ONE (10:56)
== END 2023-07-29 11:10 | disposition home or self-care (01) ==
LOC: DAH 06:51
PROVIDERS: ATTEND Urology
DX: N39.46 Mixed incontinence (principal); K21.9 Gastro-esophageal reflux disease without esophagitis; E66.9 Obesity, unspecified; I10 Essential (primary) hypertension; J44.9 Chronic obstructive pulmonary disease, unspecified; M19.90 Unspecified osteoarthritis, unspecified site; Z98.890 Other specified postprocedural states; Z79.899 Other long term (current) drug therapy; Z87.891 Personal history of nicotine dependence; Z68.35 Body mass index [BMI] 35.0-35.9, adult
CPT/HCPCS: 80048; 85025; 87088; 81003; 36415; 93005; 52287; A6260; J7120; J3010; J1100; J0330; J3490 ×2; J2001; J0696 ×2; J2250; J2704; J2405; J2710; J0585; A4358; A4215 ×2; A4223 ×2; A4213; A4222; A4221; A4663; A4216; A4335; A4600